=== PATIENT | male | born 1995 | race American Indian/Alaskan Native ===

== ENCOUNTER 2020-10-01 12:31 | Emergency (ER) | payer SELFPAY ==
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
[2020-10-01 13:37] VITALS: BP 107/66
[2020-10-01] MEDS ORDERED: TETANUS,DIPH,PERTUSS(ACELL) VACCINE 0.5 ML SYRINGE IM ONE (17:33)
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
== END 2020-10-01 17:50 | disposition home or self-care (01) ==
LOC: ED 12:31
DX: S71.112A Laceration without foreign body, left thigh, initial encounter (principal); W45.8XXA Other foreign body or object entering through skin, initial encounter; Y93.89 Activity, other specified; Y92.89 Other specified places as the place of occurrence of the external cause; Y99.8 Other external cause status
CPT/HCPCS: 90471; 90715; 99281

== ENCOUNTER 2020-10-17 09:14 | Emergency (ER) | payer SELFPAY ==
[2020-10-17 09:38] VITALS: BP 136/70
== END 2020-10-17 10:50 | disposition home or self-care (01) ==
LOC: ED 09:14
DX: S71.112D Laceration without foreign body, left thigh, subsequent encounter (principal); X58.XXXD Exposure to other specified factors, subsequent encounter